=== PATIENT | female | born 1945 | race Caucasian/White ===

== ENCOUNTER 2019-03-16 07:02 | Day surgery (SDC) | payer MEDICARE, MEDICAID ==
[~2019-03-16 07:02] MED LIST: Midazolam 1 MG/ML 2 ML SDV ONE; fentaNYL 100 MCG/2 ML SDV ONE
[2019-03-16] MEDS ORDERED: fentaNYL 100 MCG/2 ML SDV IV ONE ×4 (07:03→07:37)
[2019-03-16] MEDS ORDERED: Midazolam 1 MG/ML 2 ML SDV IV ONE ×7 (07:03→07:34)
[2019-03-16] MEDS ORDERED: Dextrose 5%-0.45% NaCl 1,000 ML IV SCH (07:20)
--- NOTE | 2019-03-16 08:48 | OR ---
DATE: 03/16/2019 PROCEDURE: Total colonoscopy. INSTRUMENT USED: PCF-H190DL Olympus video colonoscope. PREMEDICATIONS: Fentanyl 125 mcg intravenous, Versed 4 mg intravenous. Nasal O2 cannula. The procedure was done under pulse oximetry, BP recording, and monitor car operator. INDICATIONS: Screening colonoscopic examination is done for detection of any polypoid lesions and removal, endoscopic hemostasis therapy if needed. DESCRIPTION OF PROCEDURE: Initial rectal exam was unremarkable. Rigid anoscopy was normal. The colonoscope was passed with ease. Numerous scattered diverticula were noted in the distal left colon along with deformity. The scope was passed with ease up to the ileocecal area. Photographs were taken of the normal-appearing cecum identified by double-bulged ileocecal folds. No bleeding was noted from any of the visualized areas at the commencement of the examination. Bowel preparation was found to be adequate, [place] scale 2. No stricture. No vascular ectasia. No large isolated ulcerations seen. No evidence of diffuse inflammatory bowel disease in the form of friability, contact bleeding, or ulcerations. No polyp or tumor mass identified. Probing the proximal sides of folds and flexures, using adequate distention and clearing up the stool material, withdrawal of the scope was made, cecum to rectum time over 6 minutes. No bleeding was noted from any of the visualized areas at the completion of the examination. IMPRESSION: Diverticulosis. The patient tolerated the procedure well. [facility] /[id number]
== END 2019-03-16 09:39 | disposition home or self-care (01) ==
LOC: DL.ENDO 07:02
PROVIDERS: ATTEND Internal Medicine Gastroenterology
DX: Z12.11 Encounter for screening for malignant neoplasm of colon (principal); K57.30 Diverticulosis of large intestine without perforation or abscess without bleeding; E03.9 Hypothyroidism, unspecified; G47.00 Insomnia, unspecified; M81.0 Age-related osteoporosis without current pathological fracture; M19.90 Unspecified osteoarthritis, unspecified site; Z87.11 Personal history of peptic ulcer disease
CPT/HCPCS: G0121; J2250; J3010; J7042; 45378

== ENCOUNTER 2022-01-12 13:29 | Emergency (ER) | payer MEDICARE, MEDICAID ==
[2022-01-12] MEDS ORDERED: Amoxicillin/Clavulanate K 875-125 MG Tab PO ONE (14:46)
== END 2022-01-12 15:27 | disposition home or self-care (01) ==
LOC: DL.ED 13:29
DX: S61.451A Open bite of right hand, initial encounter (principal); L08.9 Local infection of the skin and subcutaneous tissue, unspecified; J44.9 Chronic obstructive pulmonary disease, unspecified; K21.9 Gastro-esophageal reflux disease without esophagitis; E03.9 Hypothyroidism, unspecified; Z79.899 Other long term (current) drug therapy; W55.01XA Bitten by cat, initial encounter
CPT/HCPCS: 73130; 99283; A9270

== ENCOUNTER 2022-08-02 13:44 | Emergency (ER) | payer MEDICARE, MEDICAID ==
[2022-08-02] MEDS ORDERED: Lidocaine 5% Oint 35.44 GM Tube TOP ONE (15:52)
== END 2022-08-02 16:30 | disposition home or self-care (01) ==
LOC: DL.ED 13:44
DX: M17.12 Unilateral primary osteoarthritis, left knee (principal); E03.9 Hypothyroidism, unspecified; F41.9 Anxiety disorder, unspecified; K21.9 Gastro-esophageal reflux disease without esophagitis; Z79.899 Other long term (current) drug therapy
CPT/HCPCS: 73562; 99283; A9270